=== PATIENT | female | born 1980 | race Two or more races ===

== ENCOUNTER 2016-04-12 13:16 | Day surgery (SDC) | payer OTHER ==
[2016-04-12] MEDS ORDERED: LACTATED RINGERS 1,000 ML IV ONE ×3 (13:40→14:56)
[2016-04-12] MEDS ORDERED: fentaNYL 250 MCG/5 ML VIAL IVP ONE (14:00)
[2016-04-12] MEDS ORDERED: MIDAZOLAM 2 MG/2 ML VIAL IVP ONE (14:00)
[2016-04-12] MEDS ORDERED: ONDANSETRON 4 MG/2 ML VIAL ONE (14:51)
== END 2016-04-12 13:17 | disposition home or self-care (01) ==
PROC: 0DJD8ZZ Inspection of Lower Intestinal Tract, Via Natural or Artificial Opening Endoscopic (ICD-10-PCS; principal; 2016-04-12 14:15)
DX: K60.2 Anal fissure, unspecified (principal); K64.8 Other hemorrhoids
CPT/HCPCS: 45378; J3010; J7120